=== PATIENT | male | born 1960 | race Caucasian/White ===

== ENCOUNTER → 2023-10-04 | Emergency (ER) | payer OTHER, SELFPAY ==
[~2023-10-04] MED LIST: HYDROCODONE/APAP 5/325 MG TAB ONE
--- NOTE | 2023-10-04 12:41 | RAD REPORT ---
EXAM DESCRIPTION: RAD - Abdomen Acute Series - 10/04/2023 12:24 pm CLINICAL HISTORY: rectal fb COMPARISON: CHEST PA AND LAT 2 VIEW dated 11/03/2012 FINDINGS: Diffuse colonic and small bowel distention. Moderate colonic stool burden. Prior hernia re pair. Rectal foreign body. No acute osseous abnormality.Visualized lungs are unremarkable.No abnormal calcifications. IMPRESSION: Nonobstructive bowel gas pattern. Rectal foreign body. No free air identified.
--- NOTE | 2023-10-04 13:33 | EDPHYS ---
Physician Documentation [facility] Name: Babatunde Lo Age: 63 yrs Sex: Male : 1960 Arrival Date: 10/04/2023 Time: 11:33 Bed 14 Private MD: ED Physician Duran Maddox HPI: 10/03 11:52 This 63 yrs old Male presents to ER via Ambulatory with complaints of Rectal Foreign sb4 Body. 11:53 The patient or guardian reports the patient has a suspected foreign body, of the sb4 rectum. The reported likely foreign body is a sex toy. Onset: The symptoms/episode began/occurred 3 day(s) ago. Current symptoms: foreign body sensation, pain, in the area of the foreign body. Treatment Prior to Arrival: tried to remove, but couldn't get out. The patient has not experienced similar symptoms in the past. The patient has not recently seen a physician. Historical: - Allergies: 11:48 No Known Allergies; iw - Home Meds: 11:48 None [Active]; iw - PMHx: 11:48 HARD OF HEARING; iw - PSHx: 11:48 None; iw - Immunization history:: Adult Immunizations not up to date. - Social history:: Smoking status: Patient reports the use of cigarette tobacco products. ROS: 11:53 Constitutional: Negative for fever, chills, and weight loss, sb4 11:53 Abdomen/GI: Positive for rectal pain, 11:53 All other systems are negative, Exam: 11:53 Constitutional: This is a well developed, well nourished patient who is awake, alert, sb4 and in no acute distress. Head/Face: Normocephalic, atraumatic. Eyes: Extra-ocular motions intact. Periorbital areas with no swelling, redness, or edema. ENT: Mucous membranes moist. Skin: Warm, dry with normal turgor. Normal color with no rashes, no lesions, and no evidence of cellulitis. MS/ Extremity: Pulses equal, no cyanosis. Neurovascular intact. Full, normal range of motion. Neuro: Awake and alert, GCS 15, oriented to person, place, time, and situation. Motor strength 5/5 in all extremities. Sensory grossly intact. Vital Signs: 11:46 BP 144 / 98; Pulse 67; Resp 16; Temp 97.3; Pulse Ox 100% on R/A; Weight 74.84 kg; iw Height 5 ft. 8 in. ; Pain 8/10; 13:41 BP 140 / 90; Pulse 65; Resp 18 S; Pulse Ox 98% on R/A; kc6 11:46 Body Mass Index 25.09 (74.84 kg, 172.72 cm) iw 11:46 Pain Scale: Adult iw Procedures: 13:31 Foreign Body Removal: dildo, from the rectum, Dressing: The patient tolerated the ec2 removal well. MDM: 11:49 Patient medically screened. sb4 12:21 Awaiting: X-ray results, images have not been taken. sb4 13:31 ED course: I was able to retrieve the rectal foreign body from with the rectum Valsalva ec2 and in the patient lithotomy position.. 13:41 Data reviewed: vital signs, nurses notes, radiologic studies, I have discussed the sb4 patient's presentation/case with the attending Emergency Department Physician; and as a result, I will discharge patient. 10/03 11:50 Order name: Abdomen Acute Series XRAY; Complete Time: 12:46 sb4 10/03 12:52 Order name: Misc. Order: room and gown; Complete Time: 13:04 sb4 Administered Medications: 12:12 Drug: HYDROcodone-acetaminophen PO 5 mg-325 mg 2 tabs PO once Route: PO; iw 13:35 Follow up: Response: No adverse reaction; Pain is decreased; RASS: Alert and Calm (0) kc6 Disposition: 13:34 I agree with the assessment and plan of care. I reviewed the patient's care provided by [facility] Advanced Practice Provider \T\ agree w/ the diagnosis \T\ care plan. I personally saw the pt \T\ performed a substantive portion of the visit, incldng all aspects of the (History/Exam/Medical Decision Making). Disposition Summary: 10/04/23 13:33 Discharge Ordered Notes: Location: Home sb4 Problem: new sb4 Symptoms: are resolved sb4 Condition: Stable sb4 Diagnosis - Foreign body in anus and rectum - resolved sb4 Followup: sb4 - With: Emergency Department - When: As needed - Reason: Trouble breathing, Worsening of condition Discharge Instructions: - Discharge Summary Sheet sb4 Forms: - Thank You Letter sb4 - Patient Portal Instructions sb4 - Leadership Thank You Letter sb4 Signatures: Dispatcher [employer] Ruth Agrawal, RN RN Jessica Bolton PA-C PA-C sb4 Duran Maddox MD MD ec2 Carley Weathers RN kc6 Corrections: (The following items were deleted from the chart) 53 11:52 The patient presents to the emergency department with a foreign body sensation in sb4 the rectum, sb4 53 11:52 Onset: The symptoms/episode began/occurred 3 day(s) ago, sb4 sb4
--- NOTE | 2023-10-04 13:33 | ER ---
Nurse's Notes [facility] Name: Babatunde Lo Age: 63 yrs Sex: Male : 1960 Arrival Date: 10/04/2023 Time: 11:33 Bed 14 Private MD: Diagnosis: Foreign body in anus and rectum-resolved Presentation: 10/03 11:46 Chief complaint: Spouse and/or significant other states: rubber object stuck inside iw rectum X 3-4 days , she can feel it but cannot get it out. Coronavirus screen: At this time, the client does not indicate any symptoms associated with coronavirus-19. Ebola Screen: No symptoms or risks identified at this time. Initial Sepsis Screen: Does the patient meet any 2 criteria? No. Patient's initial sepsis screen is negative. Does the patient have a suspected source of infection? No. Patient's initial sepsis screen is negative. Risk Assessment: Do you want to hurt yourself or someone else? Patient reports no desire to harm self or others. Onset of symptoms was October 01, 2023. 11:46 Method Of Arrival: Ambulatory iw 11:46 Acuity: MENDEZ 3 iw Historical: - Allergies: 11:48 No Known Allergies; iw - Home Meds: 11:48 None [Active]; iw - PMHx: 11:48 HARD OF HEARING; iw - PSHx: 11:48 None; iw - Immunization history:: Adult Immunizations not up to date. - Social history:: Smoking status: Patient reports the use of cigarette tobacco products. Screenin:04 [facility] ED Fall Risk Assessment (Adult) History of falling in the last 3 months, kc6 including since admission No falls in past 3 months (0 pts) Confusion or Disorientation No (0 pts) Intoxicated or Sedated No (0 pts) Impaired Gait No (0 pts) Mobility Assist Device Used No (0 pt) Altered Elimination No (0 pt) Score/Fall Risk Level 0 - 2 = Low Risk. Abuse screen: Denies threats or abuse. Denies injuries from another. Nutritional screening: No deficits noted. Tuberculosis screening: No symptoms or risk factors identified. Assessment: 13:00 General: Appears in no apparent distress. uncomfortable, well groomed, well developed, kc6 Behavior is calm, cooperative, appropriate for age. Pain: Complains of pain in rectum. Neuro: Level of Consciousness is awake, alert, obeys commands, Oriented to person, place, time, situation, Appropriate for age. Cardiovascular: Capillary refill < 3 seconds. Respiratory: Airway is patent Trachea midline Respiratory effort is even, unlabored, Respiratory pattern is regular, symmetrical. GI: Reports constipation. : No signs and/or symptoms were reported regarding the genitourinary system. EENT: No signs and/or symptoms were reported regarding the EENT system. Derm: No signs and/or symptoms reported regarding the dermatologic system. Skin is intact, is healthy with good turgor, Skin is pink, warm \T\ dry. Musculoskeletal: No signs and/or symptoms reported regarding the musculoskeletal system. Circulation, motion, and sensation intact. Capillary refill < 3 seconds, Range of motion: intact in all extremities. Vital Signs: 11:46 BP 144 / 98; Pulse 67; Resp 16; Temp 97.3; Pulse Ox 100% on R/A; Weight 74.84 kg; iw Height 5 ft. 8 in. ; Pain 8/10; 13:41 BP 140 / 90; Pulse 65; Resp 18 S; Pulse Ox 98% on R/A; kc6 11:46 Body Mass Index 25.09 (74.84 kg, 172.72 cm) iw 11:46 Pain Scale: Adult iw ED Course: 11:36 Patient arrived in ED. ec2 11:37 Jessica Salgado PA-C is PHCP. sb4 11:37 Duran Maddox MD is Attending Physician. sb4 11:48 Triage completed. iw 11:49 Arm band placed on. iw 12:26 Abdomen Acute Series XRAY In Process Unspecified. EDMS 13:04 Carley Weathers, RN is Primary Nurse. kc6 13:04 Patient has correct armband on for positive identification. Placed in gown. Bed in low kc6 position. Call light in reach. Side rails up X2. Client placed on continuous cardiac and pulse oximetry monitoring. NIBP monitoring applied. 13:04 Patient maintains SpO2 saturation greater than 95% on room air. kc6 13:30 Assist provider with foreign body removal of dildo from rectum. using a speculum Set up kc6 for procedure. Performed by Duran Maddox MD Patient tolerated well. 13:42 Patient did not have IV access during this emergency room visit. kc6 Administered Medications: 12:12 Drug: HYDROcodone-acetaminophen PO 5 mg-325 mg 2 tabs PO once Route: PO; iw 13:35 Follow up: Response: No adverse reaction; Pain is decreased; RASS: Alert and Calm (0) kc6 Medication: 13:42 VIS not applicable for this client. kc6 Outcome: 13:33 Discharge ordered by . sb4 13:41 Discharged to home ambulatory, with significant other, kc6 13:41 Condition: improved 13:41 Discharge instructions given to patient, significant other, Instructed on discharge instructions, follow up and referral plans. safe sex practices, Demonstrated understanding of instructions, follow-up care, 13:42 Patient left the ED. kc6 Signatures: Dispatcher [employer] Ruth Agrawal RN RN iw Carley Weathers RN RN kc6 Jessica Salgado, PA-C PA-C sb4 Duran Maddox MD MD ec2 Corrections: (The following items were deleted from the chart) 11:49 11:46 BP 144 / 98; Pulse 67bpm; Resp 16bpm; Pulse Ox 100% RA; Temp 97.3F; iw iw
[2023-10-04 13:53] VITALS: BP 140/90; TEMP 97.3; O2SAT 98
== END ==
LOC: ER 11:33
DX: T18.5XXA Foreign body in anus and rectum, initial encounter (principal); Z72.0 Tobacco use
CPT/HCPCS: 74022; 99284

== ENCOUNTER 2023-12-21 15:27 | Emergency (ER) | payer OTHER ==
--- NOTE | 2023-12-21 15:55 | ER ---
Nurse's Notes [facility] Name: Babatunde Lo Age: 63 yrs Sex: Male : 1960 Arrival Date: 12/21/2023 Time: 15:27 Bed DX4 Private MD: Diagnosis: Cellulitis of right upper limb Presentation: 12/20 15:42 Chief complaint: Patient states: "I woke up with pain and swelling in my right hand and mb9 arm for the past 4-5 days.". Coronavirus screen: At this time, the client does not indicate any symptoms associated with coronavirus-19. Ebola Screen: No symptoms or risks identified at this time. Initial Sepsis Screen: Does the patient meet any 2 criteria? No. Patient's initial sepsis screen is negative. Does the patient have a suspected source of infection? No. Patient's initial sepsis screen is negative. Risk Assessment: Do you want to hurt yourself or someone else? Patient reports no desire to harm self or others. Onset of symptoms was December 21, 2023. 15:42 Method Of Arrival: Ambulatory 9 15:42 Acuity: MENDEZ 3 mb9 Triage Assessment: 15:44 General: Appears in no apparent distress. Behavior is calm, cooperative. Pain: mb9 Complains of pain in right hand Pain radiates to right arm Quality of pain is described as throbbing. EENT: No signs and/or symptoms were reported regarding the EENT system. Neuro: Elam Agitation-Sedation Scale (RASS): 0 - Alert and Calm Level of Consciousness is awake, alert, obeys commands, Oriented to person, place, time, situation, Appropriate for age. Cardiovascular: Patient's skin is warm and dry. Respiratory: Airway is patent Respiratory effort is even, unlabored, Respiratory pattern is regular, symmetrical. GI: No signs and/or symptoms were reported involving the gastrointestinal system. : No signs and/or symptoms were reported regarding the genitourinary system. Derm: Skin is pink, warm \\T\\ dry. Musculoskeletal: Swelling present in right hand. Historical: - Allergies: 15:43 No Known Allergies; mb9 - Home Meds: 15:43 None [Active]; mb9 - PMHx: 15:43 HARD OF HEARING; mb9 - PSHx: 15:43 Repair of inguinal hernia; mb9 - Immunization history:: Adult Immunizations up to date. - Infectious Disease History:: Denies. - Social history:: Smoking status: Patient reports the use of cigarette tobacco products, smokes one pack cigarettes per day. Screenin:20 Abuse screen: Denies threats or abuse. Nutritional screening: No deficits noted. ap3 Tuberculosis screening: No symptoms or risk factors identified. 16:23 [facility] ED Fall Risk Assessment (Adult) History of falling in the last 3 months, ap3 including since admission No falls in past 3 months (0 pts) Confusion or Disorientation No (0 pts) Intoxicated or Sedated No (0 pts) Impaired Gait No (0 pts) Mobility Assist Device Used No (0 pt) Altered Elimination No (0 pt) Score/Fall Risk Level 0 - 2 = Low Risk Oriented to surroundings, Maintained a safe environment, Educated pt \\T\\ family on fall prevention, incl call for assistance when getting out of bed, Assessed \\T\\ reinforced patient's understanding of fall precautions, Provided non-skid footwear, Hourly rounding (assess needs \\T\\ fall precautionary measures) done, Used ambulatory aids as needed (educated on \\T\\ assisted with), Used gait belt as appropriate. Assessment: 16:19 General: Appears in no apparent distress. Behavior is calm, cooperative. Pain: ap3 Complains of pain in right arm and right hand. Neuro: Level of Consciousness is awake, alert, obeys commands, Oriented to person, place, time, situation, Gait is steady. Cardiovascular: Patient's skin is warm and dry. Respiratory: Airway is patent Respiratory effort is even, unlabored, Respiratory pattern is regular, symmetrical. Vital Signs: 15:42 BP 156 / 94; Pulse 73; Resp 18; Temp 98.7(O); Pulse Ox 100% on R/A; Weight 68.04 kg; mb9 Height 5 ft. 8 in. ; Pain 10/10; 15:42 Body Mass Index 22.81 (68.04 kg, 172.72 cm) mb9 15:42 Pain Scale: Adult mb9 ED Course: 15:31 Patient arrived in ED. mr 15:41 Duran Maddox MD is Attending Physician. ec2 15:43 Triage completed. mb9 15:43 Arm band placed on. mb9 16:20 Provided Education on: follow up discharges. ap3 16:20 Patient has correct armband on for positive identification. Bed in low position. Call ap3 light in reach. Adult w/ patient. 16:20 No provider procedures requiring assistance completed. Patient did not have IV access ap3 during this emergency room visit. Administered Medications: 16:10 Drug: HYDROcodone-acetaminophen PO 5 mg-325 mg 2 tabs PO once Route: PO; ap3 16:22 Follow up: Response: Medication administered at discharge. ap3 16:10 Drug: Cephalexin PO 500 mg PO once Route: PO; ap3 16:22 Follow up: Response: Medication administered at discharge. ap3 Medication: 16:20 VIS not applicable for this client. ap3 Outcome: 15:55 Discharge ordered by . ec2 16:23 Discharged to home ambulatory, with family, ap3 16:23 Condition: good 16:23 Discharge instructions given to patient, family, Instructed on discharge instructions, follow up and referral plans. medication usage, Demonstrated understanding of instructions, follow-up care, medications, Prescriptions given X 2, 16:23 Patient left the ED. ap3 Signatures: Mini Xie, Reg Reg mr Yolanda Calderon, RN RN ap3 Mini Munoz, RN RN mb9 Duran Maddox MD MD ec2
--- NOTE | 2023-12-21 15:55 | EDPHYS ---
Physician Documentation [facility] Name: Babatunde Lo Age: 63 yrs Sex: Male : 1960 Arrival Date: 12/21/2023 Time: 15:27 Bed DX4 Private MD: ED Physician Duran Maddox HPI: 12/20 15:58 This 63 yrs old Male presents to ER via Ambulatory with complaints of Hand ec2 Pain, Hand Swelling. 15:58 Patient arrives today for evaluation of right hand pain and swelling. Patient reports ec2 that he works with his hands, states that he been having increasing pain in the right wrist. Patient reports swelling, redness as well, no fevers, no chills, no nausea or vomiting. Patient reports no falls injuries or trauma. Denies history of gout, denies history of arthritis.. Historical: - Allergies: 15:43 No Known Allergies; mb9 - Home Meds: 15:43 None [Active]; mb9 - PMHx: 15:43 HARD OF HEARING; mb9 - PSHx: 15:43 Repair of inguinal hernia; mb9 - Immunization history:: Adult Immunizations up to date. - Infectious Disease History:: Denies. - Social history:: Smoking status: Patient reports the use of cigarette tobacco products, smokes one pack cigarettes per day. ROS: 15:58 Constitutional: as per hpi ec2 Exam: 15:58 Constitutional: GEN: NAD Head: atraumatic Eyes: EOMI Ears: External ears are ec2 normal. CV: regular rate LUNGS: no respiratory distress ABD: non-distended SKIN: Erythema overlying the dorsum of the right hand, no significant effusion in the right wrist region, warmth appreciated. No crepitus MSK: no evidence of trauma NEURO: moves all extremities equally Vital Signs: 15:42 BP 156 / 94; Pulse 73; Resp 18; Temp 98.7(O); Pulse Ox 100% on R/A; Weight 68.04 kg; mb9 Height 5 ft. 8 in. ; Pain 10/10; 15:42 Body Mass Index 22.81 (68.04 kg, 172.72 cm) mb9 15:42 Pain Scale: Adult mb9 MDM: 15:41 Patient medically screened. ec2 15:58 Data reviewed: vital signs. ED course: Patient arrives today for right hand pain and ec2 swelling. Examination remarkable for skin findings as above. I suspect cellulitis causing the patient's symptoms. Observe the patient on no medications, prescribe him antibiotics and have him follow-up with her primary care doctor. Other differential diagnoses include DVT, gout, arthritis, fracture however patient without any HPI to corroborate this. Additionally considered septic joint. Patient is otherwise systemically well-appearing and in no acute distress, I have a lower suspicion for this in the patient I did not appreciate any significant fluid in the joint space. Will discharge home. Return precautions given.. Administered Medications: 16:10 Drug: HYDROcodone-acetaminophen PO 5 mg-325 mg 2 tabs PO once Route: PO; ap3 16:22 Follow up: Response: Medication administered at discharge. ap3 16:10 Drug: Cephalexin PO 500 mg PO once Route: PO; ap3 16:22 Follow up: Response: Medication administered at discharge. ap3 Disposition Summary: 12/21/23 15:55 Discharge Ordered Notes: Location: Home ec2 Condition: Stable ec2 Diagnosis - Cellulitis of right upper limb ec2 Followup: ec2 - With: Private Physician - When: - Reason: Re-evaluation by your physician Discharge Instructions: - Discharge Summary Sheet ec2 - Cellulitis, Adult ec2 Forms: - Medication Reconciliation Form ec2 - Antibiotic Education ec2 - Prescription Opioid Use ec2 - Patient Portal Instructions ec2 - Leadership Thank You Letter ec2 Prescriptions: - acetaminophen-codeine 300-15 mg Oral tablet - take 1 tablet ORAL route every 4 hours; 30 tablet; Refills: 0, Product ec2 Selection Permitted - Cephalexin 500 mg Oral Capsule - take 1 capsule ORAL route every 6 hours for 10 days; 40 capsule; Refills: 0, ec2 Product Selection Permitted Signatures: Yolanda Calderon RN RN ap3 Mini Munoz RN RN mb9 Duran Maddox MD MD ec2
[2023-12-21] MEDS ORDERED: CEPHALEXIN 250 MG CAP ONE (16:04)
[2023-12-21] MEDS ORDERED: HYDROCODONE/APAP 5/325 MG TAB ONE (16:05)
[2023-12-21 17:30] VITALS: BP 156/94; TEMP 98.7; O2SAT 100
== END 2023-12-21 16:23 | disposition home or self-care (01) ==
LOC: ER 15:27
DX: L03.113 Cellulitis of right upper limb (principal)
CPT/HCPCS: 99283